=== PATIENT | male | born 1940 | race Caucasian/White ===

== ENCOUNTER 2017-03-16 09:28 | Emergency (ER) | payer OTHER, BC ==
[~2017-03-16] VITALS: Ht 180.3 cm; Wt 78.9 kg
[2017-03-16 09:28] VITALS: BP_SYST 162
--- NOTE | 2017-03-16 09:28 | NUR ---
BROUGHT BACK TO BED #3 AND TRIAGED. REPORT GIVEN TO VIOLETTA
--- NOTE | 2017-03-16 09:40 | NUR ---
ER Dr. LEBRON at bedside examining patient.
--- NOTE | 2017-03-16 09:45 | NUR ---
Pt ambulated into to the ED with laceration to L forearm. Pt states he was using a "grinder lap" 30 min ago and it backfired and hit him on the arm. Slight bleeding to site. Bandage removed and laceration was cleaned with NS. Pt tolerated well. No other injuries/complainted per pt or noted.
--- NOTE | 2017-03-16 10:18 | NUR ---
ER MD Isaac applying dermabond to pt's laceration.
--- NOTE | 2017-03-16 10:23 | NUR ---
Patient given written and verbal discharge instructions and verbalizes understanding. ER MD LEBRON discussed with patient the results and treatment provided. Patient in stable condition. ID arm band removed. NO Rx given. Patient educated on pain management and to follow up with PMD. Pain Scale 0. Opportunity for questions provided and answered.
[2017-03-16 10:26] VITALS: BP_SYST 150
== END 2017-03-16 10:26 | disposition home or self-care (01) ==
LOC: SED 09:28
DX: S51.812A Laceration without foreign body of left forearm, initial encounter (principal); W31.89XA Contact with other specified machinery, initial encounter; Y93.89 Activity, other specified; Y92.89 Other specified places as the place of occurrence of the external cause; Y99.8 Other external cause status
CPT/HCPCS: 99283